=== PATIENT | male | born 1985 | race Two or more races ===

== ENCOUNTER 2017-10-03 23:10 | Emergency (ER) | payer MEDICAID ==
[~2017-10-03] VITALS: Ht 172.7 cm; Wt 66.6 kg
[2017-10-03 23:13] VITALS: BP 147/99
== END 2017-10-03 23:44 | disposition home or self-care (01) ==
LOC: ER 23:10
DX: R20.2 Paresthesia of skin (principal)
CPT/HCPCS: 99281

== ENCOUNTER 2019-04-13 02:30 | Emergency (ER) | payer MEDICAID ==
[~2019-04-13] VITALS: Ht 170.2 cm; Wt 73.7 kg
[2019-04-13 02:48] VITALS: BP 113/78
== END 2019-04-13 04:11 | disposition home or self-care (01) ==
LOC: ER 02:31
DX: L02.211 Cutaneous abscess of abdominal wall (principal)
CPT/HCPCS: 99281